=== PATIENT | female | born 1955 | race Caucasian/White ===

== ENCOUNTER 2016-11-29 07:40 | Emergency (ER) | payer OTHER ==
[~2016-11-29 07:40] MED LIST: ACETAMINOPHEN PO; CALCIUM PO; CLARINEX-D1 TAB.SR . PO; CLARITIN D PO; MAXZIDE 75/50 T1 TAB PO; RESTASIS32 EA OP; VIT E PO
== END 2016-11-29 11:59 | disposition left against medical advice (07) ==
LOC: CED 07:40
DX: Z53.21 Procedure and treatment not carried out due to patient leaving prior to being seen by health care provider (principal)

== ENCOUNTER → 2016-11-30 | Outpatient (CLI) | payer OTHER ==
--- NOTE | ~2016-11-30 | US85 ---
[facility] A Service of [facility] RADIOLOGY TEXT RESULTS PATIENT: SREEKANTH CHARLES LOCATION: SNIV : 55 UNIT #: [id number] AGE: [address]: Suresh Fernandez MD SEX: F ORDER DR: [id number] [address] [address] [id number] O MR#: [id number] Acc #: [id number] NAME: SREEKANTH CHARLES. : 1955 SEX: F STUDY DATE/TIME: 11/30/2016 14:09 UNIT: SNIV ROOM: STUDY DESCRIPTION: [facility] [employer] [facility] Attending Physician: Suresh Fernandez M.D. Referring Physician: Suresh Fernandez M.D. Ordering Physician: Suresh Fernandez M.D. Primary Care Physician: Suresh Fernandez M.D. MEDICAL IMAGING REPORT This report is preliminary unless electronic signature is present. EXAM Right leg vein Doppler 11/30 INDICATIONS Pain and swelling in the right leg for 1 week. TECHNIQUE Venous ultrasound examination of the right lower extremity was performed using grayscale, spectral Doppler and color flow Doppler imaging. FINDINGS The examination is negative. There is no evidence of right lower extremity deep venous thrombus from the groin to the lower calf. Visualized greater saphenous vein is also patent. IMPRESSION Negative examination. No evidence of right lower extremity deep venous thrombosis. Dictated by... Bryson Villeda Jr., M.D. THIS IS AN ELECTRONICALLY VERIFIED REPORT Bryson Villeda Jr., M.D. at 12/02/2016 7:21 AM RIRI/gagan TD: 12/01/2016 06:50 JOB #: [id number] MEDICAL IMAGING REPORT [facility] A Service of [facility] RADIOLOGY TEXT RESULTS PATIENT: SREEKANTH CHARLES LOCATION: SNIV : 55 UNIT #: [id number] AGE: [address]: Suresh Fernandez MD SEX: F ORDER DR: Page 1 of 1
== END | disposition home or self-care (01) ==
LOC: SNIV 13:30
DX: M79.604 Pain in right leg (principal); M79.89 Other specified soft tissue disorders
CPT/HCPCS: 93971

== ENCOUNTER → 2016-12-02 | Outpatient (CLI) | payer OTHER ==
--- NOTE | ~2016-12-02 | CT2 ---
[facility] A Service of [facility] RADIOLOGY TEXT RESULTS PATIENT: SREEKANTH CHARLES LOCATION: CCAT : 55 UNIT #: [id number] AGE: [address]: Suresh Fernandez MD SEX: F ORDER DR: [id number] [facility] [address] [place], [place] [address] [id number] O MR#: [id number] [facility] #: [id number] NAME: SREEKANTH CHARLES. : 1955 SEX: F STUDY DATE/TIME: 12/02/2016 15:48 UNIT: CCAT ROOM: STUDY DESCRIPTION: CT Abd and Pelv W Cont Attending Physician: Suresh Fernandez M.D. Referring Physician: Suresh Fernandez M.D. Ordering Physician: Suresh Fernandez M.D. Primary Care Physician: Suresh Fernandez M.D. MEDICAL IMAGING REPORT This report is preliminary unless electronic signature is present EXAM CT abdomen and pelvis, 12/02/2016. HISTORY Abdomen pain, bloating. H. Pylori infection. Colonoscopy on September 28. Upper abdomen bloating, short of air since colonoscopy. Pain. TECHNIQUE CT abdomen and pelvis performed with intravenous administration of 100 mL Isovue-370. Enteric contrast also administered. This CT exam was performed with one or more of the following radiation dose reduction techniques: automatic exposure control, adjustment of mA and/or kV according to patient size, and iterative reconstruction. COMPARISON Most recent comparison, 07/27/2005. FINDINGS There is evidence of emphysema at the lung bases. Correlate with risk factors. Heart upper limits of normal in size. Liver slightly low in overall density suggesting fatty infiltration. There is no suspicious focal hepatic parenchymal abnormality. The gallbladder, spleen, pancreas, adrenal glands, kidneys are unremarkable. CT PELVIS: No inguinal adenopathy. Urinary bladder unremarkable. Status post hysterectomy. 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 No suspicious adnexal structures. No pelvic or retroperitoneal adenopathy. Small hiatal hernia. Remainder of visualized distal esophagus and stomach unremarkable. The small bowel is unremarkable. Appendix is normal. Colon shows moderate stool burden throughout the colon without pathologic dilatation. No colonic inflammatory change. Minimal uncomplicated sigmoid diverticulosis. Vascular structures appear STS. [facility] A Service of [facility] RADIOLOGY TEXT RESULTS PATIENT: SREEKANTH CHARLES LOCATION: [facility] : 55 UNIT #: [id number] AGE: [address]: Suresh Fernandez MD SEX: F ORDER DR: of normal caliber. The bony structures show no acute abnormality. IMPRESSION 1. No clearly acute abnormality is seen in the abdomen or pelvis. 2. Mild fatty infiltration of liver. No focal hepatic parenchymal abnormality. 3. Gallbladder, pancreas, appendix normal. 4. Kidneys and remainder of urinary tract unremarkable. 5. Status post hysterectomy. 6. Moderate stool burden in colon without pathologic dilatation. This may be physiologic in nature. Correlate with any clinical signs or symptoms of constipation. Similar appearance on prior study in 2005. 7. There is some evidence of centrilobular emphysema at the lung bases. Correlate with risk factors. 8. Heart upper limits of normal in size. Dictated by... Miguel Diego M.D. THIS IS AN ELECTRONICALLY VERIFIED REPORT Miguel Diego M.D. at 12/04/2016 9:39 PM ALINA/jose luis TD: 12/03/2016 17:18 JOB #: [id number] MEDICAL IMAGING REPORT Page 1 of 1 COPY
[2016-12-02 15:21] LABS: POC - CREATININE 0.89 mg/dL (0.44-1.03); POC - GFR >60.0 mL/min (>60)
== END | disposition home or self-care (01) ==
LOC: CCAT 14:19
PROVIDERS: Internal Medicine
DX: R14.0 Abdominal distension (gaseous) (principal); R10.9 Unspecified abdominal pain; K76.0 Fatty (change of) liver, not elsewhere classified; Z90.710 Acquired absence of both cervix and uterus
CPT/HCPCS: 74177; 82565; Q9967

== ENCOUNTER → 2016-12-04 | Outpatient (CLI) | payer OTHER ==
--- NOTE | ~2016-12-04 | CT95 ---
[facility] A Service of [facility] RADIOLOGY TEXT RESULTS PATIENT: SREEKANTH CHARLES [facility] #: [id number] AGE: [address]: Suresh Fernandez MD SEX: F ORDER DR: [id number] [facility] [address] [place], [place] [address] [id number] O MR#: [id number] [facility] #: [id number] NAME: SREEKANTH CHARLES. : 1955 SEX: F STUDY DATE/TIME: 12/04/2016 15:13 UNIT: [facility] ROOM: STUDY DESCRIPTION: CT Lower Ext Rt Wo Cont Attending Physician: Suresh Fernandez M.D. Referring Physician: Suresh Fernandez M.D. Ordering Physician: Suresh Fernandez M.D. Primary Care Physician: Suresh Fernandez M.D. MEDICAL IMAGING REPORT This report is preliminary unless electronic signature is present EXAM CT right lower extremity without contrast. HISTORY 60-year-old with acute onset lower leg pain. States was sitting in recliner 11/28/2016, tried to push foot down and could not stand or walk on foot. Pain for 7 days. TECHNIQUE Thin section axial images performed through the right ankle without contrast. Multiplanar reconstructed images reviewed at a work station. This CT exam was performed with one or more of the following radiation dose reduction techniques: automatic exposure control, adjustment of mA and/or kV according to patient size, and iterative reconstruction. FINDINGS No evidence of an occult fracture. Focal subchondral cystic change noted along the lateral tailored dome measuring up to a centimeter, most likely representing an area of chondromalacia. Ankle mortise appears maintained. Subtalar joint unremarkable. Evaluation of soft tissues demonstrates some mild edema within the plantar aspect of the foot and heel pad, but no focal fluid collections. The Achilles tendon unremarkable on CT. The remainder of the visualized ankle tendons also unremarkable by CT. No joint effusion. Musculature demonstrates mild fatty atrophy of the abductor digiti minimi muscle. This can be secondary to neuropathy involving the lateral plantar nerve. IMPRESSION 1. No evidence of an occult fracture. 2. 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 3. Nonspecific edema along the plantar aspect of the foot, may just represent dependent edema. [facility]. [facility] A Service of [facility] RADIOLOGY TEXT RESULTS PATIENT: SREEKANTH CHARLES LOCATION: [facility] : 55 UNIT #: [id number] AGE: [address]: Suresh Fernandez MD SEX: F ORDER DR: 4. Mild atrophy of the abductor digiti minimi. This can be associated with neuropathy involving the lateral plantar nerve. 5. Not mentioned above, there is a small plantar calcaneal spur nonspecific. Dictated by... Sirena Ferreira M.D. THIS IS AN ELECTRONICALLY VERIFIED REPORT Sirena Ferreira M.D. at 12/08/2016 9:31 AM Syd TD: 12/04/2016 22:46 JOB #: [id number] MEDICAL IMAGING REPORT Page 1 of 1 COPY
== END | disposition home or self-care (01) ==
LOC: CCAT 14:53
DX: M25.571 Pain in right ankle and joints of right foot (principal); M94.271 Chondromalacia, right ankle and joints of right foot; M77.31 Calcaneal spur, right foot
CPT/HCPCS: 73700